=== PATIENT | female | born 1975 | race African-American/Black ===

== ENCOUNTER 2024-03-28 00:09 | Emergency (ER) | payer BC ==
[~2024-03-28] VITALS: Ht 165.1 cm; Wt 69.0 kg
[2024-03-28 00:22] VITALS: TEMP 97.9; O2SAT 99
[2024-03-28] MEDS: LORAZEPAM 0.5MG TABLET PO ONE (01:13)
[2024-03-28 01:35] VITALS: BP 131/89; PULSE 86; RESP 16
== END 2024-03-28 01:48 | disposition home or self-care (01) ==
LOC: ER 00:21
DX: F41.9 Anxiety disorder, unspecified (principal); G43.909 Migraine, unspecified, not intractable, without status migrainosus; Z98.890 Other specified postprocedural states; Z88.0 Allergy status to penicillin
CPT/HCPCS: 81025; 99283

== ENCOUNTER 2024-03-31 03:10 | Emergency (ER) | payer BC ==
[~2024-03-31] VITALS: Ht 157.5 cm; Wt 69.0 kg
[2024-03-31 03:20] VITALS: O2SAT 98
[2024-03-31] MEDS ORDERED: ESCI10TA MT (04:28)
[2024-03-31] MEDS: CITALOPRAM HYDROBROMIDE 10MG TABLET PO NR (04:44)
[2024-03-31] MEDS ORDERED: ESCITALOPRAM OXALATE 10 MG PO NR (04:45)
[2024-03-31 04:53] VITALS: BP 130/88; PULSE 102; RESP 20; TEMP 98.7
== END 2024-03-31 04:54 | disposition home or self-care (01) ==
LOC: ER 03:17
DX: F32.9 Major depressive disorder, single episode, unspecified (principal); F41.9 Anxiety disorder, unspecified; Z88.0 Allergy status to penicillin
CPT/HCPCS: 81025; 99283

== ENCOUNTER 2024-03-31 20:47 | Emergency (ER) | payer BC ==
[~2024-03-31] VITALS: Ht 157.5 cm; Wt 77.0 kg
[~2024-03-31 20:47] MED LIST: ESCI10TA MT
[2024-03-31 21:06] VITALS: BP 148/85; PULSE 80; RESP 18; TEMP 98.6; O2SAT 100
== END 2024-03-31 23:25 | disposition home or self-care (01) ==
LOC: ER 20:47
DX: F41.9 Anxiety disorder, unspecified (principal); F32.9 Major depressive disorder, single episode, unspecified; Z98.890 Other specified postprocedural states; Z88.0 Allergy status to penicillin
CPT/HCPCS: 99283

== ENCOUNTER 2024-04-05 14:04 | Inpatient (IN) | payer BC ==
[~2024-04-05] VITALS: Ht 154.9 cm; Wt 66.2 kg
[2024-04-05 16:20] LABS: HEMATOCRIT. 26.9 % (36.0-48.0); HEMOGLOBIN. 7.6 g/dL (12.0-16.0); MEAN CORPUSCULAR HEMOGLOBIN 15.6 pg (28.0-32.0); MEAN CORPUSCULAR HGB CONC 28.2 g/dL (31.0-37.0); MEAN CORPUSCULAR VOLUME 55.2 fL (81.0-99.0); MEAN PLATELET VOLUME 8.5 fl (7.4-10.4); PLATELET 331 x1000/uL (130-400); RED BLOOD CELL COUNT 4.87 mill/uL (4.2-5.4); RED CELL DISTRIBUTION WIDTH 24.5 % (11.6-14.6); WHITE BLOOD COUNT 3.9 x1000/uL (4.5-11.0)
[2024-04-05 16:21] LABS: DIFFERENTIAL COMMENT 1
[2024-04-05 16:31] LABS: CARBON DIOXIDE 28 mEq/L (21-32); CHLORIDE 109 mEq/L (98-107); POTASSIUM 3.1 mEq/L (3.5-5.1); SODIUM 147 mEq/L (136-145)
[2024-04-05 16:32] LABS: HCG SCREEN NEGATIVE
[2024-04-05 16:33] LABS: CALCIUM 8.6 mg/dL (8.7-10.4)
[2024-04-05 16:37] LABS: CREATININE 0.5 mg/dL (0.6-1.0); GLUCOSE 106 mg/dL (70-105); TROPONIN I HIGH SENSITIVITY 7 ng/L (3.0-34); UREA NITROGEN BLOOD 19 mg/dL (9-23)
[2024-04-05 16:40] LABS: PLATELET ESTIMATE NORMAL; T4 FREE 2.31 ng/dL (0.89-1.76)
[2024-04-05 16:41] LABS: THYROID STIMULATING HORMONE < 0.10 uIU/mL (0.55-4.78)
[2024-04-05] MEDS: SODIUM CHLORIDE 0.9% 1,000 ML IV ONE (17:46)
[2024-04-05] MEDS ORDERED: IPRATROPIUM/ALBUTEROL 0.5-3(2.5)MG/3ML NEB NEB PRN (18:45)
[2024-04-05] MEDS ORDERED: KETOROLAC 15MG/ML VIAL IV PRN (18:45)
[2024-04-05] MEDS ORDERED: GUAIFENESIN 200MG/10ML SUGAR FREE UDC PO PRN (18:45)
[2024-04-05] MEDS ORDERED: ACETAMINOPHEN 325MG TABLET PO PRN (18:45)
[2024-04-05] MEDS ORDERED: MAGNESIUM/ALUMINUM HYDROXIDE/SIMETHICONE 30ML UDC PO PRN (18:45)
[2024-04-05] MEDS ORDERED: ONDANSETRON HCL 4MG/2ML INJ IV PRN (18:45)
[2024-04-05] MEDS ORDERED: NITROGLYCERIN 0.4MG TABLET SL SL PRN (18:45)
[2024-04-05] MEDS ORDERED: DOCUSATE SODIUM 100MG CAPSULE PO PRN (18:45)
[2024-04-05] MEDS: SODIUM CHLORIDE 0.9% 1,000 ML IV SCH (19:50)
[2024-04-05] MEDS: POTASSIUM CHLORIDE 20MEQ TABLET SR PO NR (20:22)
[2024-04-05 22:21] LABS: IRON 14 ug/dL (50-170)
[2024-04-05 22:22] LABS: TRIGLYCERIDE 46 mg/dL (0-150)
[2024-04-05 22:23] LABS: LDL CHOLESTEROL 54 mg/dL (5-100)
[2024-04-05 22:24] LABS: CHOLESTEROL 149 mg/dL (<200); HDL CHOLESTEROL 82 mg/dL (>65); TOTAL IRON BINDING CAPACITY 325 ug/dl (250-425)
[2024-04-05 22:27] LABS: FOLIC ACID (FOLATE) SERUM > 20.00 ng/mL (>5.38); VITAMIN B12 SERUM 718 pg/mL (211-911)
[2024-04-05] MEDS: PROPRANOLOL HCL 10MG TABLET PO SCH (22:39)
[2024-04-06] MEDS: METHIMAZOLE 5MG TABLET PO SCH (04:01)
[2024-04-06 06:25] LABS: CHLORIDE 108 mEq/L (98-107); POTASSIUM 3.4 mEq/L (3.5-5.1); SODIUM 142 mEq/L (136-145)
[2024-04-06 06:27] LABS: CALCIUM 9.4 mg/dL (8.7-10.4); CARBON DIOXIDE 25 mEq/L (21-32)
[2024-04-06 06:32] LABS: CREATININE 0.4 mg/dL (0.6-1.0); GLUCOSE 82 mg/dL (70-105)
[2024-04-06 06:33] LABS: UREA NITROGEN BLOOD 17 mg/dL (9-23)
[2024-04-06 06:34] LABS: ALANINE AMINOTRANSFERASE 67 IU/L (10-49); ALBUMIN 3.9 g/dL (3.2-4.8); ASPARTATE AMINOTRANSFERASE 79 IU/L (<34)
[2024-04-06 06:35] LABS: BILIRUBIN TOTAL 0.7 mg/dL (0.1-1.0); PHOSPHORUS 3.4 mg/dL (2.5-4.9); PROTEIN TOTAL 6.2 g/dL (6.0-8.3)
[2024-04-06 06:57] LABS: BASOPHILS % 0.7 % (0.0-2.0); EOSINOPHILS % 0.9 % (0.0-5.0); HEMATOCRIT. 22.5 % (36.0-48.0); LYMPHOCYTES % 48.4 % (20.0-50.0); MEAN CORPUSCULAR HEMOGLOBIN 16.6 pg (28.0-32.0); MEAN CORPUSCULAR HGB CONC 29.9 g/dL (31.0-37.0); MEAN CORPUSCULAR VOLUME 55.5 fL (81.0-99.0); RED BLOOD CELL COUNT 4.05 mill/uL (4.2-5.4); RED CELL DISTRIBUTION WIDTH 24.6 % (11.6-14.6)
[2024-04-06 08:17] LABS: HEMOGLOBIN. 6.7 g/dL (12.0-16.0)
[2024-04-06 08:19] LABS: DIFFERENTIAL COMMENT 1
[2024-04-06 09:41] LABS: PLATELET 247 x1000/uL (130-400)
[2024-04-06] MEDS: PANTOPRAZOLE SODIUM 40 MG/VIAL IV SCH (10:33)
[2024-04-07] VITALS (10 sets, daily range): BP systolic 149–186; BP diastolic 61–81; PULSE 61–82; RESP 18–19; TEMP 97.5–100
[2024-04-07] MEDS: CLONIDINE 0.1MG TABLET PO PRN (04:36)
[2024-04-07] MEDS: METHIMAZOLE 10MG TABLET PO SCH (07:25)
[2024-04-07] MEDS: ACETAMINOPHEN 325MG TABLET PO PRN (10:14)
[2024-04-07] MEDS: IRON SUCROSE COMPLEX 100 MG/5 ML ML IV SCH (13:58)
[2024-04-08] VITALS: BP 148/77; PULSE 83; RESP 18; TEMP 97.9
[2024-04-08 04:00] VITALS: BP 150/84; RESP 18; TEMP 97.6
[2024-04-08 06:33] LABS: HEMATOCRIT. 25.6 % (36.0-48.0); MEAN CORPUSCULAR HEMOGLOBIN 18.3 pg (28.0-32.0); MEAN CORPUSCULAR HGB CONC 31.1 g/dL (31.0-37.0); MEAN CORPUSCULAR VOLUME 58.7 fL (81.0-99.0); RED BLOOD CELL COUNT 4.36 mill/uL (4.2-5.4); RED CELL DISTRIBUTION WIDTH 27.1 % (11.6-14.6); WHITE BLOOD COUNT 4.5 x1000/uL (4.5-11.0)
[2024-04-08 06:35] LABS: CHLORIDE 109 mEq/L (98-107); POTASSIUM 3.4 mEq/L (3.5-5.1); SODIUM 142 mEq/L (136-145)
[2024-04-08 06:36] LABS: CARBON DIOXIDE 26 mEq/L (21-32)
[2024-04-08 06:37] LABS: CALCIUM 9.3 mg/dL (8.7-10.4)
[2024-04-08 06:41] LABS: CREATININE 0.4 mg/dL (0.6-1.0)
[2024-04-08 06:42] LABS: GLUCOSE 84 mg/dL (70-105); UREA NITROGEN BLOOD 8 mg/dL (9-23)
[2024-04-08 06:43] LABS: ALANINE AMINOTRANSFERASE 83 IU/L (10-49); ALBUMIN 3.8 g/dL (3.2-4.8); ASPARTATE AMINOTRANSFERASE 108 IU/L (<34)
[2024-04-08 06:44] LABS: BILIRUBIN TOTAL 0.6 mg/dL (0.1-1.0); PHOSPHORUS 3.3 mg/dL (2.5-4.9)
[2024-04-08 06:45] LABS: PROTEIN TOTAL 6.1 g/dL (6.0-8.3)
[2024-04-08 07:46] LABS: DIFFERENTIAL COMMENT 1
[2024-04-08 08:00] VITALS: BP 149/86; PULSE 78; RESP 19; TEMP 97.9
[2024-04-08] MEDS ORDERED: METH-372 MT (09:42)
[2024-04-08] MEDS ORDERED: PROP20TA19 MT (09:42)
[2024-04-08] MEDS: POTASSIUM CHLORIDE 20MEQ TABLET SR PO NR (10:40)
[2024-04-08 11:23] LABS: ANISOCYTOSIS 4+; MICROCYTOSIS 4+; OVALOCYTES 1+
[2024-04-08 11:26] LABS: MEAN PLATELET VOLUME 9.1 fl (7.4-10.4); PLATELET ESTIMATE NORMAL
[2024-04-08 11:27] LABS: PLATELET 184 x1000/uL (130-400)
[2024-04-08 12:00] VITALS: BP 115/68; PULSE 70; RESP 18; TEMP 97.7
[2024-04-08 16:00] VITALS: BP 144/99; PULSE 89; RESP 18; TEMP 97.7
[2024-04-09] VITALS: BP 167/86; PULSE 71; RESP 20; TEMP 97.7
[2024-04-09] MEDS: ZOLPIDEM TARTRATE 5MG TABLET PO PRN (00:31)
[2024-04-09 04:00] VITALS: BP 160/72; PULSE 70; RESP 20; TEMP 98.1
[2024-04-09 08:00] VITALS: BP 170/64; PULSE 63; RESP 19; TEMP 97.9
[2024-04-09 10:10] VITALS: BP 170/64; PULSE 63; TEMP 97.9; O2SAT 97
== END 2024-04-09 10:30 | disposition home or self-care (01) | DRG 644 ==
LOC: ER 14:32 → EDBEDREQ 17:49 → 5WST 04-06 17:47 → 6EST 04-07 04:29
PROVIDERS: ADMIT Internal Medicine; ATTEND Internal Medicine
PROC: 30233N1 Transfusion of Nonautologous Red Blood Cells into Peripheral Vein, Percutaneous Approach (ICD-10-PCS; principal; 2024-04-07)
DX: E05.90 Thyrotoxicosis, unspecified without thyrotoxic crisis or storm (principal); E87.0 Hyperosmolality and hypernatremia; E87.6 Hypokalemia; E83.51 Hypocalcemia
CPT/HCPCS: 36415; 70490; 71045; 76536; 76830; 76856; 80048; 80053; 80061; 82607; 82746; 83036; 83540; 83550; 83735; 84100; 84145; 84439; 84443; 84481; 84484; 84703; 85025; 85379; 86850; 86900; 86920; 93005; 93306; 93970; 96361; 96365; 96366; 99285; J2470; J7030; P9016

== ENCOUNTER 2024-04-16 16:09 | Emergency (ER) | payer BC ==
[~2024-04-16] VITALS: Ht 170.2 cm; Wt 71.0 kg
[~2024-04-16 16:09] MED LIST changes: +METH-372 MT; +PROP20TA19 MT
[2024-04-16 16:17] VITALS: O2SAT 97
[2024-04-16] MEDS: LORAZEPAM 2MG/ML INJ IM ONE (17:54)
[2024-04-16] MEDS: ACETAMINOPHEN 325MG TABLET PO ONE (17:55)
[2024-04-16 19:26] VITALS: BP 133/71; PULSE 80; RESP 18; TEMP 98
== END 2024-04-16 19:27 | disposition home or self-care (01) ==
LOC: ER 16:09
DX: R51.9 Headache, unspecified (principal); D64.9 Anemia, unspecified; F41.9 Anxiety disorder, unspecified; F32.9 Major depressive disorder, single episode, unspecified; E03.9 Hypothyroidism, unspecified; Z88.0 Allergy status to penicillin; Z98.890 Other specified postprocedural states
CPT/HCPCS: 99285; 70450; 81025; 96372; J2060